=== PATIENT | female | born 1970 | race Caucasian/White ===

== ENCOUNTER 2024-03-01 18:17 | Inpatient (IN) | payer OTHER ==
[~2024-03-01] VITALS: Ht 157.5 cm; Wt 68.2 kg
[2024-03-01] MEDS: SODIUM CHLORIDE 0.9% 1,000 ML IV ONE (20:15)
[2024-03-01 20:21] LABS: BASOPHILS % 0.5 % (0.0-2.0); EOSINOPHILS % 1.3 % (0.0-5.0); HEMATOCRIT. 47.7 % (36.0-48.0); HEMOGLOBIN. 16.4 g/dL (12.0-16.0); LYMPHOCYTES % 18.9 % (20.0-50.0); MEAN CORPUSCULAR HEMOGLOBIN 31.4 pg (28.0-32.0); MEAN CORPUSCULAR HGB CONC 34.3 g/dL (31.0-37.0); MEAN CORPUSCULAR VOLUME 91.5 fL (81.0-99.0); MEAN PLATELET VOLUME 10.6 fl (7.4-10.4); MONOCYTES % 6.6 % (2.0-8.0); NEUTROPHILS % 72.7 % (40.0-76.0); PLATELET 188 x1000/uL (130-400); RED BLOOD CELL COUNT 5.21 mill/uL (4.2-5.4); RED CELL DISTRIBUTION WIDTH 13.3 % (11.6-14.6); WHITE BLOOD COUNT 6.5 x1000/uL (4.5-11.0)
[2024-03-01 20:27] LABS: CHLORIDE 108 mEq/L (98-107); POTASSIUM 4.1 mEq/L (3.5-5.1); SODIUM 141 mEq/L (136-145)
[2024-03-01 20:28] LABS: CALCIUM 10.3 mg/dL (8.7-10.4); CARBON DIOXIDE 26 mEq/L (21-32)
[2024-03-01 20:33] LABS: CREATININE 0.9 mg/dL (0.6-1.0); GLUCOSE 106 mg/dL (70-105); UREA NITROGEN BLOOD 14 mg/dL (9-23)
[2024-03-01 20:35] LABS: ALANINE AMINOTRANSFERASE 79 IU/L (10-49); ASPARTATE AMINOTRANSFERASE 50 IU/L (<34)
[2024-03-01 20:36] LABS: BILIRUBIN TOTAL 0.4 mg/dL (0.1-1.0); PROTEIN TOTAL 8.4 g/dL (6.0-8.3)
[2024-03-01 20:40] LABS: BILIRUBIN DIRECT < 0.1 mg/dL (<=3.0); TROPONIN I HIGH SENSITIVITY < 4 ng/L (3.0-34)
[2024-03-02 02:31] VITALS: BP 126/86; PULSE 80; RESP 18; TEMP 36.8072
[2024-03-02] MEDS: ASPIRIN 81MG TABLET ONE (03:14)
[2024-03-02 05:00] VITALS: BP 105/63; PULSE 71; RESP 18; TEMP 36.55848; O2SAT 98
[2024-03-02 07:04] LABS: CALCIUM 9.4 mg/dL (8.7-10.4); CARBON DIOXIDE 23 mEq/L (21-32); CHLORIDE 112 mEq/L (98-107); SODIUM 143 mEq/L (136-145)
[2024-03-02 07:07] LABS: THYROID STIMULATING HORMONE 2.29 uIU/mL (0.55-4.78)
[2024-03-02 07:09] LABS: CREATININE 0.7 mg/dL (0.6-1.0); GLUCOSE 102 mg/dL (70-105)
[2024-03-02 07:10] LABS: UREA NITROGEN BLOOD 13 mg/dL (9-23)
[2024-03-02 07:11] LABS: ALANINE AMINOTRANSFERASE 61 IU/L (10-49); ALBUMIN 4.2 g/dL (3.2-4.8); ASPARTATE AMINOTRANSFERASE 34 IU/L (<34)
[2024-03-02 07:12] LABS: BILIRUBIN TOTAL 0.4 mg/dL (0.1-1.0)
[2024-03-02 07:26] LABS: BASOPHILS % 0.4 % (0.0-2.0); EOSINOPHILS % 2.7 % (0.0-5.0); HEMATOCRIT. 43.1 % (36.0-48.0); HEMOGLOBIN. 14.4 g/dL (12.0-16.0); LYMPHOCYTES % 36.5 % (20.0-50.0); MEAN CORPUSCULAR HEMOGLOBIN 30.9 pg (28.0-32.0); MEAN CORPUSCULAR HGB CONC 33.3 g/dL (31.0-37.0); MEAN CORPUSCULAR VOLUME 92.6 fL (81.0-99.0); MEAN PLATELET VOLUME 10.3 fl (7.4-10.4); MONOCYTES % 7.6 % (2.0-8.0); NEUTROPHILS % 52.8 % (40.0-76.0); PLATELET 155 x1000/uL (130-400); RED BLOOD CELL COUNT 4.66 mill/uL (4.2-5.4); RED CELL DISTRIBUTION WIDTH 13.3 % (11.6-14.6); WHITE BLOOD COUNT 6.2 x1000/uL (4.5-11.0)
[2024-03-02 07:30] VITALS: BP 126/73; PULSE 61; RESP 18; TEMP 36.00288; O2SAT 99
[2024-03-02] MEDS: METOPROLOL TARTRATE 25MG TABLET PO SCH (09:00)
[2024-03-02] MEDS: ASPIRIN 81MG EC TABLET PO SCH (09:05)
[2024-03-02] MEDS: ENOXAPARIN 40MG/0.4ML SYR SUBCUT SCH (09:05)
[2024-03-02] MEDS ORDERED: ONDANSETRON HCL 4MG/2ML INJ IV PRN (09:30)
[2024-03-02] MEDS ORDERED: IPRATROPIUM/ALBUTEROL 0.5-3(2.5)MG/3ML NEB HHN PRN (09:30)
[2024-03-02] MEDS ORDERED: DOCUSATE SODIUM 100MG CAPSULE PO PRN (09:30)
[2024-03-02] MEDS ORDERED: CLONIDINE 0.1MG TABLET PO PRN (09:30)
[2024-03-02] MEDS ORDERED: ACETAMINOPHEN 325MG TABLET PO PRN (09:30)
[2024-03-02 11:55] VITALS: BP 108/67; PULSE 69; RESP 18; TEMP 36.61404; O2SAT 97
[2024-03-02 14:12] LABS: CLARITY URINE CLEAR (CLEAR); COLOR URINE YELLOW (YELLOW); GLUCOSE URINE NEGATIVE (NEGATIVE); KETONES URINE NEGATIVE (NEGATIVE); LEUKOCYTE ESTERASE URINE NEGATIVE (NEGATIVE); NITRITE URINE NEGATIVE (NEGATIVE); OCCULT BLOOD URINE NEGATIVE (NEGATIVE); PH URINE 6.5 (4.5-8.0); PROTEIN URINE NEGATIVE (NEGATIVE); SPECIFIC GRAVITY URINE 1.023 (1.005-1.030); UROBILINOGEN URINE 0.2 E.U./dL (0.2-1.0)
[2024-03-02 14:21] LABS: *AMPHETAMINES SCREEN URINE NEGATIVE (NEGATIVE); *BARBITURATES SCREEN URINE NEGATIVE (NEGATIVE); *BENZODIAZEPINES SCREEN URINE NEGATIVE (NEGATIVE); *COCAINE SCREEN URINE NEGATIVE (NEGATIVE)
[2024-03-02 14:22] LABS: CANNABINOID URINE SCREEN NEGATIVE (NEGATIVE); ECSTASY MDMA SCREEN URINE NEGATIVE (NEGATIVE); METHADONE URINE SCREEN NEGATIVE (NEGATIVE); OPIATES URINE SCREEN NEGATIVE (NEGATIVE); PHENCYCLIDINE URINE SCREEN NEGATIVE (NEGATIVE)
[2024-03-02 16:00] VITALS: BP 118/67; PULSE 70; RESP 18; TEMP 36.61404; O2SAT 98
[2024-03-02 17:16] LABS: CREATINE KINASE MB FRACTION < 0.5 ng/mL (0.5-3.6)
[2024-03-02 17:17] LABS: CREATINE KINASE 58 IU/L (34-145)
[2024-03-02 17:21] LABS: TROPONIN I HIGH SENSITIVITY < 4 ng/L (3.0-34)
[2024-03-02] MEDS: ACETAMINOPHEN 325MG TABLET PO PRN (17:50)
[2024-03-02 20:00] VITALS: BP 133/69; PULSE 67; RESP 18; TEMP 36.61404; O2SAT 99
[2024-03-03] VITALS (9 sets, daily range): BP systolic 103–121; BP diastolic 66–78; PULSE 63–81; RESP 18–20; TEMP 36.61404–37.05852; O2SAT 97–99
[2024-03-03 01:03] LABS: CREATINE KINASE MB FRACTION 0.6 ng/mL (0.5-3.6)
[2024-03-03 01:04] LABS: CREATINE KINASE 56 IU/L (34-145)
[2024-03-03 01:08] LABS: TROPONIN I HIGH SENSITIVITY < 4 ng/L (3.0-34)
[2024-03-03 07:20] LABS: BASOPHILS % 0.4 % (0.0-2.0); EOSINOPHILS % 3.6 % (0.0-5.0); HEMATOCRIT. 45.1 % (36.0-48.0); HEMOGLOBIN. 15.1 g/dL (12.0-16.0); LYMPHOCYTES % 32.6 % (20.0-50.0); MEAN CORPUSCULAR HGB CONC 33.5 g/dL (31.0-37.0); MEAN CORPUSCULAR VOLUME 92.5 fL (81.0-99.0); MEAN PLATELET VOLUME 10.2 fl (7.4-10.4); MONOCYTES % 7.5 % (2.0-8.0); NEUTROPHILS % 55.9 % (40.0-76.0); PLATELET 156 x1000/uL (130-400); RED BLOOD CELL COUNT 4.87 mill/uL (4.2-5.4); RED CELL DISTRIBUTION WIDTH 13.4 % (11.6-14.6); WHITE BLOOD COUNT 4.7 x1000/uL (4.5-11.0)
[2024-03-03 07:25] LABS: PROTHROMBIN TIME 10.8 sec (9.6-11.0)
[2024-03-03 07:26] LABS: CARBON DIOXIDE 27 mEq/L (21-32); CHLORIDE 107 mEq/L (98-107); POTASSIUM 3.7 mEq/L (3.5-5.1); SODIUM 140 mEq/L (136-145)
[2024-03-03 07:27] LABS: CALCIUM 9.6 mg/dL (8.7-10.4)
[2024-03-03 07:31] LABS: CREATININE 0.8 mg/dL (0.6-1.0); GLUCOSE 102 mg/dL (70-105)
[2024-03-03 07:32] LABS: LDL CHOLESTEROL 131 mg/dL (5-100); TRIGLYCERIDE 198 mg/dL (0-150); UREA NITROGEN BLOOD 10 mg/dL (9-23)
[2024-03-03 07:33] LABS: ALANINE AMINOTRANSFERASE 79 IU/L (10-49); ALBUMIN 4.2 g/dL (3.2-4.8); ASPARTATE AMINOTRANSFERASE 47 IU/L (<34); CHOLESTEROL 172 mg/dL (<200); PROTEIN TOTAL 7.1 g/dL (6.0-8.3)
[2024-03-03 07:34] LABS: BILIRUBIN DIRECT 0.2 mg/dL (<=3.0); BILIRUBIN TOTAL 0.8 mg/dL (0.1-1.0); HDL CHOLESTEROL 39 mg/dL (>65); PHOSPHORUS 3.2 mg/dL (2.5-4.9)
[2024-03-03 07:59] LABS: HEPATITIS B SURFACE ANTIGEN NEGATIVE (Negative)
[2024-03-03 08:21] LABS: HEPATITIS C AB NON REACTIVE (Neg) (Negative)
[2024-03-03] MEDS ORDERED: LIP40 MT (11:09)
== END 2024-03-03 16:00 | disposition home or self-care (01) | DRG 310 ==
LOC: ER 18:17 → 7WST 23:56 → EDBEDREQ 03-02 00:05 → EDBEDREQTM 03-02 00:05
PROVIDERS: ADMIT Internal Medicine; ATTEND Internal Medicine
DX: R00.2 Palpitations (principal); R00.0 Tachycardia, unspecified; F41.9 Anxiety disorder, unspecified
CPT/HCPCS: 36415; 71045; 80048; 80053; 80061; 80076; 80305; 81003; 82550; 82553; 83036; 83735; 83880; 84100; 84439; 84443; 84480; 84484; 85025; 85379; 86705; 87340; 93005; 99285; J1650; J7030